=== PATIENT | female | born 1990 | race Caucasian/White ===

== ENCOUNTER 2021-04-03 15:27 | Inpatient (IN) ==
[2021-04-03] MEDS ORDERED: NS IRRIG 3000 ML + EPI 1 MG IR ONE (15:50)
[2021-04-03] MEDS ORDERED: ULTANE GAS IN ONE (15:58)
[2021-04-03] MEDS ORDERED: BRIDION ONE (18:24)
[2021-04-03] MEDS ORDERED: FENTANYL VIAL INJ 100 mcg ONE (18:24)
[2021-04-03] MEDS ORDERED: VERSED ONE (18:24)
[2021-04-03] MEDS ORDERED: PEPCID 20 MG VIAL ONE (18:24)
[2021-04-03] MEDS ORDERED: KETAMINE 50 MG/5 ML-NACL SYRNG ONE (18:24)
[2021-04-03] MEDS ORDERED: DECADRON INJ ONE (18:24)
[2021-04-03] MEDS ORDERED: DIPRIVAN VIAL 20 ML ONE ×3 (18:24→19:43)
[2021-04-03] MEDS ORDERED: ROBINUL ONE (18:24)
[2021-04-03] MEDS ORDERED: ZOFRAN INJ 4 MG VIAL ONE (18:24)
[2021-04-03] MEDS ORDERED: ZEMURON 100 MG VIAL ONE (18:25)
[2021-04-03] MEDS ORDERED: ANCEF VIAL 1 GRAM ONE (18:29)
[2021-04-03] MEDS ORDERED: LR 1,000 ML IV 1,000 ML IV ONE (18:29)
[2021-04-03] MEDS ORDERED: NS 100 ML IV 100 ML ONE (18:29)
[2021-04-03] MEDS ORDERED: PRECEDEX INJ VIAL IVP ONE (18:30)
--- NOTE | 2021-04-03 18:55 | DR.H&P ---
H&P History & Physical for Day of: H&P Date: 04/03/21 Chief Complaint Chief Complaint: Continued right lower quadrant abdominal pain status post appendectomy for acute appendicitis . Allergies Allergies Allergy/AdvReac Type Severity Reaction Status Date / Time No Known Drug Allergies Allergy Verified 03/31/21 14:14 History of Present Illness History of Present Illness: 30 year old female status post laparoscopic appendectomy for acute appendicitis 3 days ago. Patient has had persistent abdominal pain and was office yesterday. She has had no fever. She has had nausea and abdominal pain. Repeat CT scan shows fluid collection with no obvious abscess in the right lower quadrant, but interpreted as possible infected fluid. Past Medical History Past Medical History: Hypothyroidism Past Surgical History Surgical History: Appendectomy Social History Alcohol Use: None Drug Use: None Medications Home Medications: No Known Drug Allergies Allergy (Verified 03/31/21 14:14) Labs Labs: Laboratory SARS CoV-2 RNA Rapid CATA Negative (NEGATIVE) 04/03/21 16:34 WBC=13.4, Hgb=11.4, BMP WNL and creatinine =0.6 Review of Systems Constitutional: See HPI Eyes: No Symptoms Reported ENT: No Symptoms Reported Respiratory: No Symptoms Reported Cardiovascular: No Symptoms Reported Gastrointestinal: No Symptoms Reported Genitourinary: Dysuria (Has had some burning with urination ) Musculoskeletal: No Symptoms Reported Skin: No Symptoms Reported Neurological: No Symptoms Reported Physical Exam Vital Signs: Temperature 99.1 F Pulse Rate [Bilateral Radial] 106 Respiratory Rate 20 Blood Pressure [Left Arm] 105/59 Blood Pressure 106/64 O2 Sat by Pulse Oximetry 99 Oriented: Normal, Time, Person and Place Eyes: Normal Ear: Normal Nose: Normal Throat: Normal Respiratory: Clear Throughout Cardiovascular: Normal (mildly tachycardic) and Tachycardia : Dysuria Auscultation: Bowel Sounds: Normal Tenderness: RLQ (mild RLQ and hypogastric tenderness) Skin: Normal Musculoskeletal: Normal Psychiatric: Normal Mood Description: Anxious Speech Pattern: Clear Assessment/Plan (1) Abdominal abscess: Status: Acute Plan: Will explore the abdomen with laparoscopy and wash it out. Obtain cultures look for any possible perforation. Probably will require drainage . Review H&P Reviewed: Yes Patient was examined?: Yes
[2021-04-03] MEDS ORDERED: DIPRIVAN VIAL 60 ML ONE (19:02)
[2021-04-03] MEDS ORDERED: MARCAINE 0.5% ONE (19:49)
--- NOTE | 2021-04-03 20:02 | OR.IMMED ---
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
[2021-04-03] MEDS ORDERED: BARHEMSYS INJ IVP PRN (20:12)
[2021-04-03] MEDS ORDERED: ZOFRAN INJ 4 MG VIAL IVP PRN (20:12)
[2021-04-03] MEDS ORDERED: PHENERGAN INJ 25 MG IM PRN (20:12)
[2021-04-03] MEDS ORDERED: BENADRYL INJ 50 MG VIAL IVP PRN (20:12)
[2021-04-03] MEDS ORDERED: REGLAN INJ 10 MG VIAL IVP PRN (20:12)
[2021-04-03] MEDS ORDERED: BARHEMSYS INJ ONE (20:15)
[2021-04-03] MEDS ORDERED: DILAUDID INJ ONE (20:20)
[2021-04-03] MEDS: DILAUDID INJ IVP PRN ×2 (20:21→20:26)
[2021-04-03] MEDS: LR 1,000 ML IV 1,000 ML IV SCH (21:28)
[2021-04-03] MEDS: ZOSYN VIAL 3.375 GRAMS 3.375 G in NS 100 ML IV 100 ML IV SCH ×2 (21:47)
[2021-04-03] MEDS: PERCOCET TAB 5/325 MG PO PRN (22:01)
[2021-04-04] MEDS: DILAUDID INJ IVP PRN ×3 (00:30→20:59)
[2021-04-04 04:54] LABS: BASOPHILS % (AUTO) 0.1 % (0.2-1.0); HEMATOCRIT 29.8 % (36.0-47.0); HEMOGLOBIN 10.3 g/dL (12.0-16.0); LYMPHOCYTES # (AUTO) 0.3 X10^3/uL (1.3-2.9); LYMPHOCYTES % (AUTO) 3.9 % (21.0-51.0); MEAN CORPUSCULAR HEMOGLOBIN 32.5 pg (27.0-34.0); MEAN CORPUSCULAR HGB CONC 34.7 g/dL (33.0-35.0); MEAN CORPUSCULAR VOLUME 93.7 fL (80.0-100.0); MEAN PLATELET VOLUME 7.4 fL (7.4-11.0); MONOCYTES # (AUTO) 0.5 x10^3/uL (0.3-0.8); MONOCYTES % (AUTO) 6.9 % (0.0-13.0); NEUTROPHILS # (AUTO) 6.3 x10^3/uL (2.2-4.8); NEUTROPHILS % (AUTO) 89.1 % (42.0-75.0); RED BLOOD COUNT 3.18 X10^6/uL (3.5-5.4); RED CELL DISTRIBUTION WIDTH 12.7 % (11.6-16.5); WHITE BLOOD COUNT 7.1 X10^3/uL (3.6-10.0)
[2021-04-04 04:59] LABS: BLOOD UREA NITROGEN 6 mg/dL (7-18); CALCIUM 7.9 mg/dL (8.5-10.1); CARBON DIOXIDE 25.6 mmol/L (21-32); CHLORIDE 106 mmol/L (98-107); COR NA(FOR HYPERGLY) 142 mmol/L (136-145); CREATININE 0.62 mg/dL (0.55-1.02); SODIUM 141 mmol/L (136-145); eGFR NON BLACK RACES > 60 (>60)
[2021-04-04] MEDS: LR 1,000 ML IV 1,000 ML IV SCH ×4 (05:22→20:59)
[2021-04-04] MEDS: ZOSYN VIAL 3.375 GRAMS 3.375 G in NS 100 ML IV 100 ML IV SCH ×4 (05:23→20:59)
[2021-04-04] MEDS: PERCOCET TAB 5/325 MG PO PRN (08:30)
[2021-04-04] MEDS: LOVENOX INJ 40 MG SYR SC SCH (09:51)
--- NOTE | 2021-04-04 11:05 | NOTE.SOAP ---
Soap Note Note for Day of Date of Exam: 04/04/21 Subjective Data Subjective Data: POD # 1 after laparoscopic drainage intra -abdominal abscess following laparoscopic appendectomy for acute appendicitis 3 days prior. Objective Data Temperature: 97.0 F Pulse Rate: 73 Respiratory Rate: 24 Blood Pressure: 102/60 O2 Sat by Pulse Oximetry: 96 Objective Data: SHOBHA drains with bloody drainage . Abdomen much less tenders, She feels better and is taking po liquids well. Assessment Assessment: POD 1 after laparoscopic drainage intra-abdominal abscess Plan Plan: Advance to regular diet .Encourage ambulation. Continue IV antibiotics.
--- NOTE | 2021-04-04 12:27 | DR.OPNOTE ---
OP NOTE Pre-Op Diagnosis: Possible intra-abdominal abscess Post-Op Diagnosis: same Procedure Date Date Of Procedure: 04/03/21 Procedure: PROCEDURE : exploratory laparoscopy with drainage of Purulent fluid and placement of drains NARRATIVE: The patient was taken to the operative suite and placed in the Supine position. General endotracheal anesthesia induced. The entire Abdomen was prepped and draped in sterile fashion. Left lateral trocar site was opened with a 15 knife blade and a 5 mm Optical trocar used to enter the abdominal cavity and the abdomen insufflated with carbon dioxide. Under direct Vision a trocar was placed above the left lower quadrant 12- mm trocar and a five mm trocar placed in the left upper quadrant. The patient had cloudy fluid surrounding the cecum with small bowel adhered to the wall. This was taken down bluntly. No leak of bowel or succus material noted. This area irrigated and suctioned free. Cultures have been obtained before suction carried out. Jared Dos Santos drain placed in the pelvis and brought out through the suprapubic trocar site and a Jared Dos Santos drain placed along the cecum and brought out through a separate stab incision in the right abdomen .Both drains secured to the skin with in terrupted 3-0 silk sutures . All incisions closed with subcutaneous 3-0 Vicryl subcutaneous sutures and the skin closed with steri-strips. The patient was extubated and taken to the recovery room in good condition. Type of Anesthesia: General Anesthetic w/ETT Findings: purulent fluid in right lower quadrant no obvious abscess cavity. No evidence of leak. Specimen/Pathology: Cultures x two of abdominal fluid . Type of Fluids Used:: Lactated Ringers EBL: minimal Drains/Tubes Placed: Jared Dos Santos (one along right colonic gutter, one in the pelvis ) Cultures: times two of abdominal fluid Complications:: none Needle/Sponge Count:: correct Disposition/Condition: Pt. tolerated procedure without difficulty. Extubated in the OR and taken to PACU in stable condition.
[2021-04-04] MEDS ORDERED: SINGULAIR TAB 10 MG PO SCH (21:00)
[2021-04-05] MEDS: PATIENT'S HOME MEDICATION PO SCH ×2 (05:27→08:20)
[2021-04-05] MEDS: ZOSYN VIAL 3.375 GRAMS 3.375 G in NS 100 ML IV 100 ML IV SCH (05:27)
[2021-04-05] MEDS: LR 1,000 ML IV 1,000 ML IV SCH (05:27)
[2021-04-05 06:29] LABS: BASOPHILS % (AUTO) 0.4 % (0.2-1.0); EOSINOPHILS % (AUTO) 0.9 % (0.9-2.9); HEMOGLOBIN 9.7 g/dL (12.0-16.0); LYMPHOCYTES % (AUTO) 21.1 % (21.0-51.0); MEAN CORPUSCULAR HEMOGLOBIN 32.7 pg (27.0-34.0); MEAN CORPUSCULAR HGB CONC 34.5 g/dL (33.0-35.0); MEAN CORPUSCULAR VOLUME 94.8 fL (80.0-100.0); MONOCYTES # (AUTO) 0.6 x10^3/uL (0.3-0.8); MONOCYTES % (AUTO) 11.7 % (0.0-13.0); NEUTROPHILS # (AUTO) 3.1 x10^3/uL (2.2-4.8); NEUTROPHILS % (AUTO) 65.9 % (42.0-75.0); RED BLOOD COUNT 2.96 X10^6/uL (3.5-5.4); RED CELL DISTRIBUTION WIDTH 12.8 % (11.6-16.5); WHITE BLOOD COUNT 4.8 X10^3/uL (3.6-10.0)
[2021-04-05 06:49] LABS: BLOOD UREA NITROGEN 6 mg/dL (7-18); CALCIUM 8.1 mg/dL (8.5-10.1); CARBON DIOXIDE 27.7 mmol/L (21-32); CHLORIDE 107 mmol/L (98-107); CREATININE 0.57 mg/dL (0.55-1.02); SODIUM 141 mmol/L (136-145); eGFR NON BLACK RACES > 60 (>60)
[2021-04-05] MEDS: LOVENOX INJ 40 MG SYR SC SCH (09:23)
[2021-04-05] MEDS: PERCOCET TAB 5/325 MG PO PRN (09:53)
[2021-04-05] MEDS ORDERED: ZOFRAN INJ 4 MG VIAL IVP ONE (11:37)
[2021-04-05 12:20] VITALS: BP 109/53
--- NOTE | 2021-04-06 11:06 | W.DIS.FURT ---
Summary of Discharge Discharge Summary of Date Date of Exam: 04/05/21 Admission Date Date of Admission: 04/03/21 Admission Diagnosis Hospital Course: 30 year old female who underwent laparoscopic appendectomy on March 31. She was discharged home that day. She has been seen in my office complaining of continued abdominal pain and had a follow-up CT scan showing questionable abscess of the RLQ and pelvis .She was admitted and taken to the operating suite on April 03 where she underwent laparoscopic wash out of the abdomen with cultures. There was cloudy fluid but no obvious abscess .There was no evidence of leak. She has had significant Improvement and is now tolerating a diet. She will be discharged home with two Jared Dos Santos drains in place.She and her mother will be instructed how to care for the drains. She will continue Cipro 500 mg BID. She has also been given Percocet 5 mg tablets to be taken every 6 hours PRN pain . She may shower tomorrow. Encourage ambulation. Follow up with me shaggy thomas . Vital Signs: Vital Signs (72 hours) 04/03/21 17:30 04/03/21 20:06 04/03/21 20:11 Temperature 99.1 F 97.9 F Pulse Rate 99 H 94 H Pulse Rate [Bilateral Radial] 106 H Respiratory Rate 20 18 17 Blood Pressure 114/65 113/57 Blood Pressure [Left Arm] 105/59 Blood Pressure [Right Arm] O2 Sat by Pulse Oximetry 99 100 100 04/03/21 20:16 04/03/21 20:21 04/03/21 20:26 Temperature Pulse Rate 92 H 91 H 91 H Pulse Rate [Bilateral Radial] Respiratory Rate 18 17 18 Blood Pressure 117/59 117/59 118/58 Blood Pressure [Left Arm] Blood Pressure [Right Arm] O2 Sat by Pulse Oximetry 100 100 95 04/03/21 20:31 04/03/21 20:36 04/03/21 20:55 Temperature 97.8 F Pulse Rate 90 89 Pulse Rate [Bilateral Radial] 91 H Respiratory Rate 18 17 20 Blood Pressure 118/59 107/60 Blood Pressure [Left Arm] 108/60 Blood Pressure [Right Arm] O2 Sat by Pulse Oximetry 95 95 93 L 04/03/21 21:10 04/03/21 21:25 04/03/21 21:40 Temperature 97.8 F 98.4 F Pulse Rate Pulse Rate [Bilateral Radial] 91 H 90 98 H Respiratory Rate 20 18 18 Blood Pressure Blood Pressure [Left Arm] 107/57 100/56 99/61 Blood Pressure [Right Arm] O2 Sat by Pulse Oximetry 94 L 94 L 92 L 04/03/21 21:55 04/03/21 22:01 04/03/21 22:55 Temperature 98.3 F Pulse Rate Pulse Rate [Bilateral Radial] 93 H 87 Respiratory Rate 20 17 18 Blood Pressure Blood Pressure [Left Arm] Blood Pressure [Right Arm] 100/62 101/57 O2 Sat by Pulse Oximetry 95 93 L 04/03/21 23:01 04/03/21 23:55 04/04/21 00:30 Temperature 98.0 F Pulse Rate Pulse Rate [Bilateral Radial] 79 Respiratory Rate 17 18 17 Blood Pressure Blood Pressure [Left Arm] Blood Pressure [Right Arm] 102/55 O2 Sat by Pulse Oximetry 94 L 04/04/21 00:55 04/04/21 01:55 04/04/21 04:00 Temperature 97.9 F 98.0 F 97.6 F Pulse Rate Pulse Rate [Bilateral Radial] 76 76 78 Respiratory Rate 18 18 18 Blood Pressure Blood Pressure [Left Arm] Blood Pressure [Right Arm] 99/57 98/54 108/58 O2 Sat by Pulse Oximetry 94 L 96 95 04/04/21 08:00 04/04/21 08:30 04/04/21 09:30 Temperature 97.0 F L Pulse Rate Pulse Rate [Bilateral Radial] 73 Respiratory Rate 24 18 18 Blood Pressure Blood Pressure [Left Arm] Blood Pressure [Right Arm] 102/60 O2 Sat by Pulse Oximetry 96 04/04/21 10:16 04/04/21 10:46 04/04/21 11:05 Temperature 97.0 F L Pulse Rate 73 Pulse Rate [Bilateral Radial] Respiratory Rate 18 18 24 Blood Pressure 102/60 Blood Pressure [Left Arm] Blood Pressure [Right Arm] O2 Sat by Pulse Oximetry 96 04/04/21 12:00 04/04/21 16:00 04/04/21 20:00 Temperature 97.6 F 97.9 F 98.1 F Pulse Rate Pulse Rate [Bilateral Radial] 74 82 92 H Respiratory Rate 20 25 H 18 Blood Pressure Blood Pressure [Left Arm] Blood Pressure [Right Arm] 109/70 112/73 120/72 O2 Sat by Pulse Oximetry 98 99 100 04/04/21 20:59 04/04/21 21:29 04/05/21 00:00 Temperature 98.1 F Pulse Rate Pulse Rate [Bilateral Radial] 79 Respiratory Rate 18 18 18 Blood Pressure Blood Pressure [Left Arm] Blood Pressure [Right Arm] 100/59 O2 Sat by Pulse Oximetry 97 04/05/21 04:00 04/05/21 08:00 04/05/21 09:53 Temperature 97.9 F 98.7 F Pulse Rate Pulse Rate [Bilateral Radial] 73 80 Respiratory Rate 22 18 18 Blood Pressure Blood Pressure [Left Arm] Blood Pressure [Right Arm] 100/63 107/63 O2 Sat by Pulse Oximetry 98 97 04/05/21 10:53 04/05/21 12:00 Temperature 98.9 F Pulse Rate Pulse Rate [Bilateral Radial] 90 Respiratory Rate 18 18 Blood Pressure Blood Pressure [Left Arm] Blood Pressure [Right Arm] 109/53 O2 Sat by Pulse Oximetry 99 Labs: Laboratory Last Values WBC 4.8 X10^3/uL (3.6-10.0) 04/05/21 05:45 RBC 2.96 X10^6/uL (3.5-5.4) L 04/05/21 05:45 Hgb 9.7 g/dL (12.0-16.0) L 04/05/21 05:45 Hct 28.0 % (36.0-47.0) L 04/05/21 05:45 MCV 94.8 fL (80.0-100.0) 04/05/21 05:45 MCH 32.7 pg (27.0-34.0) 04/05/21 05:45 MCHC 34.5 g/dL (33.0-35.0) 04/05/21 05:45 RDW 12.8 % (11.6-16.5) 04/05/21 05:45 Plt Count 153 X10^3/uL (150.0-450.0) 04/05/21 05:45 MPV 7.0 fL (7.4-11.0) L 04/05/21 05:45 Neut % (Auto) 65.9 % (42.0-75.0) 04/05/21 05:45 Lymph % (Auto) 21.1 % (21.0-51.0) 04/05/21 05:45 [place] % (Auto) 11.7 % (0.0-13.0) 04/05/21 05:45 Eos % (Auto) 0.9 % (0.9-2.9) 04/05/21 05:45 Baso % (Auto) 0.4 % (0.2-1.0) 04/05/21 05:45 Neut # (Auto) 3.1 x10^3/uL (2.2-4.8) 04/05/21 05:45 Lymph # (Auto) 1.0 X10^3/uL (1.3-2.9) L 04/05/21 05:45 [place] # (Auto) 0.6 x10^3/uL (0.3-0.8) 04/05/21 05:45 Eos # (Auto) 0.0 x10^3/uL (0.0-0.2) 04/05/21 05:45 Baso # (Auto) 0.0 X10^3/uL (0.0-0.1) 04/05/21 05:45 Absolute Nucleated RBC 0.0 /100WBC 04/05/21 05:45 Sodium 141 mmol/L (136-145) 04/05/21 05:45 Corrected Sodium TNP 04/05/21 05:45 Potassium 4.4 mmol/L (3.5-5.1) 04/05/21 05:45 Chloride 107 mmol/L (98-107) 04/05/21 05:45 Carbon Dioxide 27.7 mmol/L (21-32) 04/05/21 05:45 BUN 6 mg/dL (7-18) L 04/05/21 05:45 Creatinine 0.57 mg/dL (0.55-1.02) 04/05/21 05:45 Est GFR (MDRD) Af Amer > 60 (>60) 04/05/21 05:45 Est GFR (MDRD) Non-Af > 60 (>60) 04/05/21 05:45 Glucose 105 mg/dL (65-99) H 04/05/21 05:45 Calcium 8.1 mg/dL (8.5-10.1) L 04/05/21 05:45 SARS CoV-2 RNA Rapid CATA Negative (NEGATIVE) 04/03/21 16:34 Reason For Visit: ABD PAIN, POSS ABSCESS Discharge Date Discharge Date: 04/05/21 Discharge Diagnosis All Active Problems (Updated 04/03/21 @ 18:47 by Jasiel Wooten) Abdominal abscess (Acute) Abdominal pain, acute, right lower quadrant (Acute) Acute appendicitis (Acute) Plan of Treatment: Continue with present treatment and follow up plan. Pt is to keep follow up appointment as instructed and take medications as ordered. Discharge Medications Discharge Medications: No Known Drug Allergies Allergy (Verified 03/31/21 14:14) New Prescriptions oxycodone-acetaminophen [Percocet] 1 tab PO Q6H PRN #30 tab MDD 4 04/05/21 [Rx] CVipro 500 mg po BID Follow up and Referral Follow Up: 1 Week (Dr. Wooten) Discharge Disposition Discharge Disposition: home Discharge Condition: stable Discharge Plan Discharge Plan Hospital Course: 30 year old female who underwent laparoscopic appendectomy on March 31. She was discharged home that day. She has been seen in my office complaining of continued abdominal pain and had a follow-up CT scan showing questionable abscess of the RLQ and pelvis .She was admitted and taken to the operating suite on April 03 where she underwent laparoscopic wash out of the abdomen with cultures. There was cloudy fluid but no obvious abscess .There was no evidence of leak. She has had significant Improvement and is now tolerating a diet. She will be discharged home with two Jared Dos Santos drains in place.She and her mother will be instructed how to care for the drains. She will continue Cipro 500 mg BID. She has also been given Percocet 5 mg tablets to be taken every 6 hours PRN pain . She may shower tomorrow. Encourage ambulation. Follow up with me next Thursday . Patient Disposition: HOME, SELF-CARE Condition: Stable Health Concerns: Post Hospitalization: new medications and changes needed to prevent readmission or further decline. Pt educated and given instructions on all concerns. Plan of Treatment: Continue with present treatment and follow up plan. Pt is to keep follow up appointment as instructed and take medications as ordered. Prescriptions: New oxycodone-acetaminophen [Percocet] 5-325 mg Tablet 1 tab PO Q6H MDD 4 PRNQty: 30 RF: 0 Continued montelukast 10 mg tablet 10 mg PO QHS RF: 0 thyroid (pork) [[place] Thyroid] 60 mg tablet 60 mg PO DAILY RF: 0 Follow ups/Referrals Follow ups/Referrals: BLAINE DORMAN [Primary Care Provider] - 04/08/21 11:00 am Jasiel Wooten [STAFF PHYSICIAN] - 04/12/21 10:00 am () Instructions Instructions: Laparoscopic Appendectomy, Adult, Care After, Diagnostic Laparoscopy, Care After, How to Use an Incentive Spirometer, How to Change Your Wound Dressing, [id number], Form - Surgical Drain Record, Sutures, [place], or Adhesive Wound Closure, [id number], Preventing Problems After Surgery, How to Prevent Constipation After Surgery Activity Restrictions/Additional Instructions: patient to keep sagar drains and instruction on empting of the drains record amount of drainage bring with you to doctor appointment.patient has rx for antibotics at home and resume.rx for pain medication is in chart. Stand Alone Forms: Excuse From Work or School, Precautions for COVID19, [facility], Patient Portal, Social Distancing
== END 2021-04-05 12:50 | disposition home or self-care (01) | DRG 358 ==
LOC: MED/SURG 15:58
PROVIDERS: ADMIT Surgery; ATTEND Surgery
PROC: DIAGLAP (2021-04-03 17:45)
DX: Z20.822 Contact with and (suspected) exposure to COVID-19; R10.31 Right lower quadrant pain; E03.8 Other specified hypothyroidism; Z98.890 Other specified postprocedural states